=== PATIENT | male | born 1990 | race Two or more races ===

== ENCOUNTER 2017-03-10 10:25 | Emergency (ER) | payer SELFPAY ==
[~2017-03-10] VITALS: Ht 172.7 cm; Wt 107.1 kg
[2017-03-10 10:36] VITALS: BP 143/85
[2017-03-10] MEDS ORDERED: DIAZEPAM 5 MG TABLET ONE (11:26)
[2017-03-10] MEDS ORDERED: KETOROLAC 30 MG/1 ML ONE (11:26)
[2017-03-10] MEDS ORDERED: KETOROLAC 30 MG/1 ML IM ONE (11:30)
[2017-03-10] MEDS ORDERED: DIAZEPAM 5 MG TABLET PO ONE (11:30)
== END 2017-03-10 12:06 | disposition home or self-care (01) ==
LOC: ED 12:00
DX: S39.012A Strain of muscle, fascia and tendon of lower back, initial encounter (principal); X58.XXXA Exposure to other specified factors, initial encounter; Y93.89 Activity, other specified; Y92.89 Other specified places as the place of occurrence of the external cause; Y99.8 Other external cause status
CPT/HCPCS: 96372; 99283; J1885